=== PATIENT | female | born 1990 | race Two or more races ===

== ENCOUNTER 2020-01-08 14:19 | Inpatient (IN) | payer OTHER ==
[~2020-01-08] VITALS: Ht 160 cm; Wt 78.5 kg
[~2020-01-08 14:19] MED LIST: OXYTOCIN 30 UNITS/LACT RINGERS 500 ML IV ONE; RINGERS SOLUTION,LACTATED 1,000 ML IV PRN
[2020-01-08] MEDS ORDERED: METOCLOPRAMIDE HCL 5 MG/ML 2 ML VIAL IVP PRN (14:30)
[2020-01-08] MEDS ORDERED: LIDOCAINE/PF 1% 30 ML VIAL INJ PRN (14:30)
[2020-01-08] MEDS ORDERED: CITRIC ACID/SODIUM CITRATE 30 ML SOLUTION UDCUP PO PRN (14:30)
[2020-01-08] MEDS ORDERED: METHYLERGONOVINE MALEATE 0.2 MG/ML VIAL IM PRN (14:30)
[2020-01-08 14:48] VITALS: BP 118/74
[2020-01-08 14:48] LABS: BASOPHILS % (AUTO) 0.3 % (0.0-2.0); EOSINOPHILS % (AUTO) 0.2 % (1.0-6.0); HEMATOCRIT 33.8 % (36-46); HEMOGLOBIN 11.5 g/dL (12.0-16.0); LYMPHOCYTES # (AUTO) 1.3 K/uL (1.0-4.8); LYMPHOCYTES % (AUTO) 18.1 % (22.0-44.0); MEAN CORPUSCULAR HEMOGLOBIN 29.8 pg (26.0-34.0); MEAN CORPUSCULAR HGB CONC 33.9 G/dL (31.0-37.0); MEAN CORPUSCULAR VOLUME 88 fL (80-100); MONOCYTES # (AUTO) 0.5 K/uL (0.1-1.0); MONOCYTES % (AUTO) 6.9 % (2.0-9.0); NEUTROPHILS # (AUTO) 5.6 K/uL (1.8-7.7); NEUTROPHILS % (AUTO) 74.5 % (40.0-70.0); PLATELET COUNT (AUTO) 224 K/uL (150-450); RED BLOOD CELL COUNT(AUTO) 3.85 MIL/uL (4.00-5.20); RED CELL DISTRIBUTION WIDTH 14.5 % (11.5-14.5)
[2020-01-08] MEDS ORDERED: MISOPROSTOL 50 MCG TABLET PO ONE (15:45)
[2020-01-08] MEDS ORDERED: PREN-217 PO (16:43)
[2020-01-08] MEDS ORDERED: FentaNYL CITRATE-PF 100 MCG/2 ML VIAL IVP PRN (16:45)
[2020-01-08] MEDS: RINGERS SOLUTION,LACTATED 1,000 ML IV SCH ×2 (18:43→20:50)
[2020-01-08] MEDS ORDERED: OXYGEN THERAPY IH SCH (20:00)
[2020-01-08] MEDS ORDERED: OXYTOCIN 30 UNITS/LACT RINGERS 500 ML IV PRN (20:30)
[2020-01-09] MEDS: RINGERS SOLUTION,LACTATED 1,000 ML IV SCH ×3 (04:19→14:50)
[2020-01-09] MEDS ORDERED: ROPIVACAINE HCL/PF 0.2% 100 ML ED ONE (09:49)
[2020-01-09] MEDS ORDERED: ROPIVACAINE HCL/PF 0.2% 100 ML ED PRN (10:06)
[2020-01-09] MEDS ORDERED: DiphenhydrAMINE HCL 50 MG/ML VIAL IVP PRN (10:15)
[2020-01-09] MEDS ORDERED: NALBUPHINE HCL 10 MG/ML VIAL IVP PRN (10:15)
[2020-01-09] MEDS ORDERED: ONDANSETRON HCL 4 MG/2 ML VIAL IVP PRN (10:15)
[2020-01-09] MEDS ORDERED: HEPATITIS B VIRUS VACCINE/PF 10 MCG/0.5 ML SYRINGE IM ONE (18:00)
[2020-01-09] MEDS ORDERED: ERYTHROMYCIN 0.5% 1 GM TUBE OPHTHALMIC OINTMENT OU ONE (18:00)
[2020-01-09] MEDS ORDERED: PHYTONADIONE 1 MG/0.5 ML AMP IM ONE (18:00)
[2020-01-09] MEDS ORDERED: OXYTOCIN 30 UNITS/LACT RINGERS 500 ML IV ONE (18:10)
[2020-01-09] MEDS ORDERED: OxyCODONE HCL/ACETAMINOPHEN 5-325 MG TABLET PO PRN ×2 (18:15)
[2020-01-09] MEDS ORDERED: LIDOCAINE/PF 1% 30 ML VIAL INJ PRN (18:15)
[2020-01-09] MEDS ORDERED: MAGNESIUM HYDROXIDE SUSPENSION 30 ML UDCUP PO PRN (18:15)
[2020-01-09] MEDS ORDERED: BENZOCAINE 20%/MENTHOL 56 GM SPRAY CANISTER TP PRN (18:15)
[2020-01-09] MEDS ORDERED: GLYCERIN/WITCH HAZEL LEAF 40 PADS JAR TP PRN (18:15)
[2020-01-09] MEDS ORDERED: LANOLIN 7 GM OINTMENT TP PRN (18:15)
[2020-01-10] MEDS ORDERED: FERR-82 PO (00:35)
[2020-01-10 04:29] VITALS: BP 93/58
[2020-01-10] MEDS: IBUPROFEN 800 MG TABLET PO PRN ×3 (04:41→17:35)
[2020-01-10 06:26] LABS: BASOPHILS % (AUTO) 0.2 % (0.0-2.0); EOSINOPHILS % (AUTO) 0.1 % (1.0-6.0); HEMATOCRIT 30.1 % (36-46); HEMOGLOBIN 10.1 g/dL (12.0-16.0); LYMPHOCYTES # (AUTO) 2.1 K/uL (1.0-4.8); LYMPHOCYTES % (AUTO) 14.6 % (22.0-44.0); MEAN CORPUSCULAR HEMOGLOBIN 29.6 pg (26.0-34.0); MEAN CORPUSCULAR HGB CONC 33.5 G/dL (31.0-37.0); MEAN CORPUSCULAR VOLUME 88 fL (80-100); MONOCYTES # (AUTO) 1.1 K/uL (0.1-1.0); MONOCYTES % (AUTO) 8.1 % (2.0-9.0); NEUTROPHILS # (AUTO) 10.9 K/uL (1.8-7.7); PLATELET COUNT (AUTO)-OB 189 K/uL (150-450); RED CELL DISTRIBUTION WIDTH 14.5 % (11.5-14.5)
[2020-01-10] MEDS ORDERED: DOCU-275 PO (08:29)
[2020-01-10] MEDS ORDERED: IBUP-2071 PO (08:29)
[2020-01-10] MEDS ORDERED: FERR-89 PO (08:30)
== END 2020-01-10 18:05 | disposition home or self-care (01) | DRG 807 ==
LOC: OBSVTOIN 14:19 → 4S 14:19
PROVIDERS: ADMIT Obstetrics & Gynecology; ATTEND Obstetrics & Gynecology Obstetrics
PROC: 10907ZC Drainage of Amniotic Fluid, Therapeutic from Products of Conception, Via Natural or Artificial Opening (ICD-10-PCS; principal; 2020-01-09)
PROC: 10D07Z6 Extraction of Products of Conception, Vacuum, Via Natural or Artificial Opening (ICD-10-PCS; 2020-01-09)
PROC: 0W8NXZZ Division of Female Perineum, External Approach (ICD-10-PCS; 2020-01-09)
PROC: 3E0R3BZ Introduction of Anesthetic Agent into Spinal Canal, Percutaneous Approach (ICD-10-PCS; 2020-01-09)
PROC: 00HU33Z Insertion of Infusion Device into Spinal Canal, Percutaneous Approach (ICD-10-PCS; 2020-01-09)
DX: O69.81X0 Labor and delivery complicated by cord around neck, without compression, not applicable or unspecified (principal); Z37.0 Single live birth; O66.5 Attempted application of vacuum extractor and forceps; Z3A.39 39 weeks gestation of pregnancy
CPT/HCPCS: 85461; 86850; 86870; 86900; 86901; J2590; J2795; J7120